=== PATIENT | male | born 1970 | race African-American/Black ===

== ENCOUNTER 2022-01-08 08:43 | Emergency (ER) | payer BC ==
[2022-01-08 08:59] VITALS: BMI 28.7
[2022-01-08] MEDS ORDERED: SODIUM CHLORIDE 1,000 ML IV STA (09:56)
[2022-01-08 11:50] LABS: URINE APPEARANCE CLEAR; URINE BILIRUBIN NEGATIVE (NEGATIVE); URINE COLOR YELLOW; URINE GLUCOSE (UA) NEGATIVE (NEGATIVE); URINE KETONE NEGATIVE (NEGATIVE); URINE LEUK ESTERASE NEGATIVE (NEGATIVE); URINE NITRITE NEGATIVE (NEGATIVE); URINE PROTEIN NEGATIVE (NEGATIVE); URINE UROBILINOGEN 0.2 mg/dL (0.2-1.0)
[2022-01-08 11:51] LABS: BASO % 0.4 % (0-2.0); EOS % 2.2 % (0-4.5); HEMATOCRIT 44.3 % (35.4-49); HEMOGLOBIN 14.5 GM/dL (11.7-16.9); MCH 29.7 pg (25.7-33.7); MCHC 32.8 g/dl (32.0-35.9); MEAN CELL VOLUME 90.8 fl (80-96); MEAN PLT VOLUME 7.4 fl (7.5-11.1); MONO % 4.3 % (3.8-10.2); NEUT % 61.1 % (42.8-82.8); PLATELET COUNT 384 10^3/uL (134-434); RBC 4.88 M/mm3 (4.00-5.60); RDW 13.4 % (11.9-15.9); WHITE BLOOD COUNT 7.9 K/mm3 (4.0-10.0)
[2022-01-08 11:55] LABS: VENOUS BASE EXCESS -3.3 mmol/L (-2-2); VENOUS O2 SATURATION 32.2 % (70-80); VENOUS PCO2 54.5 mmHg (38-52); VENOUS PH 7.27 (7.310-7.410)
[2022-01-08 12:11] LABS: ALBUMIN 3.7 g/dl (3.4-5.0); BLOOD UREA NITROGEN 14.6 mg/dL (7-18); CALCIUM 9.1 mg/dL (8.5-10.1)
[2022-01-08 12:15] LABS: CREATININE 0.7 mg/dL (0.55-1.3); PHOSPHOROUS 3.2 mg/dL (2.5-4.9)
[2022-01-08 12:16] LABS: BILIRUBIN,TOTAL 0.3 mg/dL (0.2-1); TOT PROT 6.7 g/dl (6.4-8.2)
[2022-01-08] MEDS ORDERED: DEXTROSE 50%-WATER - 25 GM/50 ML VIAL IVPUSH ONE (12:18)
[2022-01-08] MEDS ORDERED: DEXTROSE 50%-WATER 25 GM/50 ML DISP.SYRIN ONE (12:29)
[2022-01-08 13:43] VITALS: BP 143/73; PULSE 77; RESP 20; TEMP 98.1
== END 2022-01-08 13:42 | disposition home or self-care (01) ==
LOC: JER 08:43
PROC: 3E033NZ Introduction of Analgesics, Hypnotics, Sedatives into Peripheral Vein, Percutaneous Approach (ICD-10-PCS; principal; 2022-01-08)
PROC: 3E0337Z Introduction of Electrolytic and Water Balance Substance into Peripheral Vein, Percutaneous Approach (ICD-10-PCS; 2022-01-08)
DX: E16.2 Hypoglycemia, unspecified (principal)
CPT/HCPCS: 36415; 80053; 81003; 82010; 82803; 82962; 83735; 84100; 84443; 84484; 85025; 87086; 93005; 93010; 99284-25

== ENCOUNTER 2023-04-28 09:42 | Inpatient (IN) | payer OTHER ==
[2023-04-28 09:50] VITALS: BMI 29.9
[2023-04-28 11:46] LABS: BASO % 0.8 % (0-2.0); EOS % 2.3 % (0-4.5); HEMATOCRIT 48.7 % (35.4-49); HEMOGLOBIN 16.2 GM/dL (11.7-16.9); LYMPH % 33.4 % (8-40); MCH 30.4 pg (25.7-33.7); MCHC 33.3 g/dl (32.0-35.9); MEAN CELL VOLUME 91.3 fl (80-96); MEAN PLT VOLUME 7.7 fl (7.5-11.1); MONO % 4.3 % (3.8-10.2); NEUT % 59.2 % (42.8-82.8); PLATELET COUNT 360 10^3/uL (134-434); RBC 5.34 M/mm3 (4.00-5.60); RDW 12.7 % (11.9-15.9); WHITE BLOOD COUNT 9.1 K/mm3 (4.0-10.0)
[2023-04-28 11:54] LABS: POTASSIUM 5.2 mmol/L (3.5-5.1)
[2023-04-28 11:55] LABS: CALCIUM 10.6 mg/dL (8.5-10.1)
[2023-04-28 11:56] LABS: ALBUMIN 4.2 g/dl (3.4-5.0); BLOOD UREA NITROGEN 15.7 mg/dL (7-18)
[2023-04-28 12:00] LABS: TOT PROT 8.1 g/dl (6.4-8.2)
[2023-04-28 12:01] LABS: BILIRUBIN,TOTAL 0.5 mg/dL (0.2-1)
[2023-04-28] MEDS ORDERED: SODIUM CHLORIDE 0.9% 500 ML INFUS.BAG IV ONE (12:43)
[2023-04-28] MEDS ORDERED: ACETAMINOPHEN 1000 MG/100 ML BAG IVPB ONE (12:43)
[2023-04-28] MEDS ORDERED: HEPARIN NA (PORCINE) 5,000 UNITS/ML 1ML VIAL IVPUSH PRN ×2 (15:35)
[2023-04-28] MEDS ORDERED: HEPARIN NA (PORCINE) 5,000 UNITS/ML 1ML VIAL IVPUSH ONE (15:35)
[2023-04-28] MEDS ORDERED: HEPARIN INFUSION - 25,000 UNITS/500 ML INFUS.BAG IVPB ONE (16:21)
[2023-04-28] MEDS ORDERED: HEPARIN NA (PORCINE) 5,000 UNITS/ML 1ML VIAL ONE (16:21)
[2023-04-28] MEDS: HEPARIN - 25,000 UNIT in SODIUM CHLORIDE 495 ML IV SCH (16:31)
[2023-04-28 16:44] LABS: INR 1.06 (0.83-1.09); PROTHROMBIN TIME (PATIENT) 12.3 SEC (9.7-13.0)
[2023-04-28] MEDS ORDERED: MELATONIN 5 MG TABLETS PO ONE (23:28)
[2023-04-29] MEDS ORDERED: MELATONIN 5 MG TABLETS ONE (00:32)
[2023-04-29] MEDS ORDERED: ESCITALOPRAM OXALATE 10 MG TABLET ONE (11:47)
[2023-04-29] MEDS ORDERED: ENALAPRIL MALEATE 5 MG TABLET ONE (11:48)
[2023-04-29] MEDS: ENALAPRIL MALEATE 2.5 MG TABLET PO SCH (11:56)
[2023-04-29] MEDS: ESCITALOPRAM OXALATE 20 MG TABLET PO SCH (11:56)
[2023-04-29] MEDS: HEPARIN - 25,000 UNIT in SODIUM CHLORIDE 495 ML IV SCH ×3 (16:45→17:47)
[2023-04-29] MEDS: INSULIN (NOVOLOG) ASPART 100 UNITS/ML 10ML VIAL SQ SCH (17:39)
[2023-04-29] MEDS: metFORMIN HCL 500 MG TABLET (FP) PO SCH (17:40)
[2023-04-29] MEDS: glipiZIDE 5 MG TABLET (FP) PO SCH (17:40)
[2023-04-29] MEDS ORDERED: PNEUMOC 20-VAL CONJ-DIP CRM/PF 0.5 ML SYRINGE IM ONE (20:00)
[2023-04-30] MEDS: glipiZIDE 5 MG TABLET (FP) PO SCH (06:40)
[2023-04-30] MEDS: metFORMIN HCL 500 MG TABLET (FP) PO SCH (06:40)
[2023-04-30] MEDS: INSULIN (NOVOLOG) ASPART 100 UNITS/ML 10ML VIAL SQ SCH ×2 (06:40→12:04)
[2023-04-30 07:41] LABS: HEMATOCRIT 43.3 % (35.4-49); HEMOGLOBIN 14.9 GM/dL (11.7-16.9); MCHC 34.4 g/dl (32.0-35.9); MEAN CELL VOLUME 90.2 fl (80-96); MEAN PLT VOLUME 8.1 fl (7.5-11.1); PLATELET COUNT 314 10^3/uL (134-434); RDW 12.7 % (11.9-15.9); WHITE BLOOD COUNT 7.8 K/mm3 (4.0-10.0)
[2023-04-30] MEDS: ESCITALOPRAM OXALATE 20 MG TABLET PO SCH (11:11)
[2023-04-30] MEDS: ENALAPRIL MALEATE 2.5 MG TABLET PO SCH (11:11)
[2023-04-30 11:15] VITALS: PULSE 94
[2023-04-30 15:18] VITALS: BP 130/82; RESP 15; TEMP 99.1
== END 2023-04-30 16:42 | disposition home or self-care (01) | DRG 176 ==
LOC: JER 09:42 → OBSVTOIN 15:41 → JERBED 15:41 → J4W 04-29 14:15
PROVIDERS: ADMIT Internal Medicine; ATTEND Internal Medicine
DX: I26.99 Other pulmonary embolism without acute cor pulmonale (principal); I10 Essential (primary) hypertension; E11.9 Type 2 diabetes mellitus without complications; E78.5 Hyperlipidemia, unspecified; R07.89 Other chest pain
CPT/HCPCS: 36415; 71046-TC-FY; 71275-TC; 74174-TC; 80053; 82962; 84484; 85025; 85027; 85610; 85730; 86850; 86900; 86901; 90677; 93005; 93010; 93306-TC; 93970-TC; 99285-25; J1644; Q9967